=== PATIENT | male | born 1945 | race Caucasian/White ===

== ENCOUNTER → 2017-07-29 | Day surgery (SDC) | payer MEDICARE, MEDICAID ==
[~2017-07-29] MED LIST: ASPI1TAB69 PO; BUPIVACAINE HCL PF 0.5% 30 ML VIAL ONE; FERR1TAB36 PO; GABA300C5 PO; HYDR-3583 PO; LEVO88TA2 PO; LIPI40TA PO; MECL-62 PO; MOME17I EACH NARE; MULT-120 PO; POTA1TAB4 PO; PROB1CAP12 PO; PROPOFOL 200 MG/20 ML AMP IV ONE; TAMS0.4C4 PO; TRIAMCINOLONE ACETONIDE 40 MG/ML VIAL I-ARTICULR ONE; VALS1TAB64 PO; methylPREDNISolone ACETATE 40 MG/ML VIAL I-ARTICULR ONE
--- NOTE | 2017-07-29 11:35 | M6 ---
cc: JARRED CASTAÑEDA M.D. DATE 07/29/2017 DATE OF 1945 PROCEDURE Fluoroscopically guided injection right sacroiliac joint. History and physical was completed and signed. Consent was signed. Procedure site was marked. Medications were listed and reconciled. Pain score was recorded. Allergies were noted. Time out was taken. Fluoroscopy time was recorded where applicable. Sedation was administered or directed by Dr. Castañeda. The patient was given oxygen. The patient was monitored by a registered nurse. Total procedure time was greater than 15 minutes. PROCEDURE NOTE IV was started. Blood pressure cuff, pulse oximeter and EKG were applied. The patient was placed in the prone position on a Bradley table, sedated with small amounts of propofol titrated to effect. Vital signs were monitored and remained stable throughout the procedure. The sacral area was prepped with alcohol and 10% Betadine solution and draped with sterile drapes. Fluoroscopy was used shooting from medial to lateral to clearly visualize the posterior joint line of the right sacroiliac joint. A sterile 5-inch, 22-gauge spinal needle was advanced into the joint under fluoroscopic guidance. There was negative aspiration for blood or any other type of fluid and the patient was given 2 mL of 0.5% Marcaine, 20 mg of Depo-Medrol and 20 mg of Kenalog. Following the procedure the patient was taken to the recovery room with stable vital signs, neurologically intact. He will be evaluated immediately and with followup to determine if he has a subjective decrease in his usual pain and a corresponding objective increase in his functional capabilities. WMD AXEL Harper/ALE /10:06 AM /11:23 AM
== END | disposition home or self-care (01) ==
LOC: PHSDC 08:33
PROVIDERS: ATTEND Pain Medicine Interventional Pain Medicine
DX: M25.551 Pain in right hip (principal); M54.5 Low back pain; I10 Essential (primary) hypertension; E11.9 Type 2 diabetes mellitus without complications
CPT/HCPCS: 99152; G0260; J1030; J3301; 27096